=== PATIENT | female | born 1990 | race Two or more races ===

== ENCOUNTER 2017-12-31 19:57 | Emergency (ER) | payer MEDICAID, OTHER ==
[~2017-12-31] VITALS: Ht 167.6 cm; Wt 104.3 kg
[2017-12-31 20:30] VITALS: BP 122/76
[2017-12-31] MEDS ORDERED: Acetaminophen 500mg (ES) tab ORAL ONE (22:15)
--- NOTE | 2017-12-31 22:18 | Emergency Room Report ---
History of Present Illness General Chief Complaint: Fever Source: Patient Present Illness HPI 27-year-old female, no significant past medical history, presenting with fever for 3 days. Patient states that she has been taking Motrin Tylenol. The last time she took any medicine was 24 hours ago. also with sore throat. still able to eat/drink Patient states that she spit up a speck of blood. However no vomiting no diarrhea. She is not complaining of any cough, abdominal pain. No sick contacts or recent travel. No headache or neck pain Allergies: Coded Allergies: No Known Allergies (Unverified , 12/31/17) Patient History Past Medical History: see triage record Past Surgical History: none Pertinent Family History: none Last Menstrual Period: 12/31/17 Now: No : 1 Para: 1 Reviewed Nursing Documentation: PMH: Agreed, PSxH: Agreed Nursing Documentation-PMH Past Medical History: No Stated History Review of Systems All Other Systems: negative except mentioned in HPI Physical Exam Vital Signs Date Time Temp Pulse Resp B/P (MAP) Pulse Ox O2 Delivery O2 Flow Rate FiO2 12/31/17 20:25 101.1 119 18 122/76 97 Room Air 101.1 Sp02 EP Interpretation: reviewed, normal General Appearance: normal inspection, well appearing, no apparent distress, alert, GCS 15, non-toxic, other - well hdyrated, conversing with family member at bedside, nontoxic Head: normocephalic, atraumatic Eyes: bilateral eye normal inspection, bilateral eye PERRL, bilateral eye EOMI ENT: normal pharynx, normal voice, moist mucus membranes, tonsillar swelling, pharyngeal erythema, other - noexudates Neck: normal inspection, full range of motion, supple Respiratory: normal inspection, lungs clear, normal breath sounds, no respiratory distress, no retraction, no wheezing, speaking full sentences, chest symmetrical Cardiovascular #1: normal inspection, regular rate, rhythm, no edema, normal capillary refill Cardiovascular #2: 2+ radial (R), 2+ radial (L) Gastrointestinal: normal inspection, non tender, soft, non-distended, no guarding, other - nontender entire abdomen Musculoskeletal: normal inspection, back normal, normal range of motion, non- tender Neurologic: normal inspection, alert, oriented x3, responsive, motor strength/ tone normal, sensory intact, normal gait, speech normal Psychiatric: normal inspection, judgement/insight normal, memory normal Skin: normal inspection, normal color, no rash, warm/dry, well hydrated, normal turgor Medical Decision Making Diagnostic Impression: Primary Impression: Fever ER Course 27-year-old female with fever, sore throat DDX: Viral syndrome, pharyngitis Plan: Tylenol, decadron ER course: Patient has remained stable during ED stay. Appears nontoxic Disposition: Patient is to be discharged to home. Patient is instructed to follow up with their primary care doctor within 3-4 days. Strict return precautions discussed with patient such as worsening/severe throat pain, inability to eat or drink, SOB, nausea, vomiting, which may indicate severe illness. Patient verbalizes understanding and agrees with plan. Please note that this Emergency Department Report was dictated using [employer] speech technology software, occasionally this can lead to erroneous entry secondary to interpretation by the dictation equipment Last Vital Signs Date Time Temp Pulse Resp B/P (MAP) Pulse Ox O2 Delivery O2 Flow Rate FiO2 12/31/17 20:30 101.1 18 122/76 97 Room Air 101.1 12/31/17 20:25 119 Disposition: HOME, SELF-CARE Condition: Improved Scripts No Active Prescriptions or Reported Meds Patient Instructions: Pharyngitis, [id number] Additional Instructions: PLEASE TAKE MOTRIN/TYLENOL AT HOME PLEASE FOLLOW UP WITH YOUR DOCTOR IN 3-4 DAYS Christine Anderson M.D. Dec 31, 2017 22:18
[2017-12-31 22:30] LABS: APPEARANCE,URINE SLIGHTLY CLOUDY; BILIRUBIN, URINE NEGATIVE (NEGATIVE); GLUCOSE, URINE (UA) NEGATIVE (NEGATIVE); KETONES,URINE 2+ (NEGATIVE); LEUKOCYTE ESTERASE ,URINE 1+ (NEGATIVE); NITRITE,URINE NEGATIVE (NEGATIVE); PH,URINE 5 (4.5-8.0); PROTEIN,URINE 2+ (NEGATIVE); UROBILINOGEN,URINE 1 MG/DL (0.0-1.0)
[2017-12-31 22:33] LABS: COLOR,URINE YELLOW
[2017-12-31] MEDS ORDERED: Dexamethasone 4mg/ml vial IM ONE (22:45)
[2017-12-31 23:00] VITALS: BP 122/76
== END 2017-12-31 23:00 | disposition home or self-care (01) ==
LOC: EMR 20:36
DX: R50.9 Fever, unspecified (principal)
CPT/HCPCS: 81003; 96372; 99284; J1100